=== PATIENT | male | born 1985 | race Caucasian/White ===

== ENCOUNTER 2017-10-10 17:47 | Emergency (ER) | payer OTHER ==
--- NOTE | 2017-10-10 18:38 | EDM.PDOC ---
ED HPI GENERAL MEDICAL PROBLEM - General Chief Complaint: General Stated Complaint: PT HAS ANXIETY Time Seen by Provider: 10/10/17 18:28 - History of Present Illness INITIAL COMMENTS - FREE TEXT/NARRATIVE: HISTORY AND PHYSICAL: History of present illness: The patient is a 32-year-old male with a history of anxiety and depression several years ago who no longer suffers from depression but intermittently will have anxiety and sees a healthcare provider back in [place] where he lives. The patient is currently in the area on a work assignment and says that he has never left his home and recently he had to fly to [place] to do a job as well as [place] and here to do work and he is feeling much more anxious and stressed by this travel. He does not drink a lot of caffeinated products and he tries to eat healthy and go to the gym. He has no systemic complaints of fever chills chest pain shortness of breath but does have nausea with his anxiety without vomiting. He does not feel depressed and has no suicidal ideation but says that with his anxiety he really would be using his Xanax but he left them at home in [place]. Patient says he has not used his Xanax over a month and he only takes it as needed mostly for sleep and his provider at home is very familiar with him in his prescription. He is here for help with sleep as he has not been able to get any rest for the last 3 nights due to his anxiety. Review of systems: As per history of present illness and below otherwise all systems reviewed and negative. Past medical history: As per history of present illness and as reviewed below otherwise noncontributory. Surgical history: As per history of present illness and as reviewed below otherwise noncontributory. Social history: No reported history of drug or alcohol abuse. Family history: As per history of present illness and as reviewed below otherwise noncontributory. Physical exam: Gen.: Well-developed well-nourished male who is nontoxic and vital signs of an reviewed by me. HEENT: Atraumatic, normocephalic, pupils reactive, negative for conjunctival pallor or scleral icterus, mucous membranes moist, throat clear, neck supple, nontender, trachea midline. Lungs: Clear to auscultation, breath sounds equal bilaterally, chest nontender. Heart: S1S2, regular rate and rhythm no overt murmurs Abdomen: Soft, nondistended, nontender. NABS Pelvis: Stable nontender. Genitourinary: Deferred. Rectal: Deferred. Extremities: Atraumatic, negative for cords or calf pain. Neurovascular unremarkable. Neuro: Awake, alert, oriented. Cranial nerves II through XII unremarkable. Cerebellum unremarkable. Motor and sensory unremarkable throughout. Exam nonfocal. Diagnostics: [] Therapeutics: [] Discussed with the patient that he could have someone at home since his medication via [employer] or he can contact his provider at home to send him a new prescription. I told him that I would give him some Xanax to tide him over and give him referral to our clinic as he will be here for the next one month. Impression: Anxiety with history of same Definitive disposition and diagnosis as appropriate pending reevaluation and review of above. - Related Data Allergies Allergy/AdvReac Type Severity Reaction Status Date / Time No Known Allergies Allergy Verified 10/10/17 18:25 Home Meds: Home Meds ALPRAZolam [Xanax XR] 1 tab PO DAILY 10/10/17 [History] ALPRAZolam [Xanax XR] 2 tab PO BEDTIME 10/10/17 [History] Past Medical History - Past Health History Medical/Surgical History: Denies Medical/Surgical History Psychiatric History: Reports: Anxiety Social & Family History - Family History Family Medical History: Noncontributory Other Dermatologic Family History: Schizophrenia - Tobacco Use Smoking Status *Q: Never Smoker Second Hand Smoke Exposure: No - Caffeine Use Caffeine Use: Reports: None - Recreational Drug Use Recreational Drug Use: No ED ROS GENERAL - Review of Systems Review Of Systems: ROS reveals no pertinent complaints other than HPI. ED EXAM, GENERAL - Physical Exam Exam: See Below (see dictation) Course - Vital Signs Last Recorded V/S: Last Vital Signs Temp 36.9 C 10/10/17 18:23 Pulse 79 10/10/17 18:23 Resp 20 10/10/17 18:23 BP 144/72 H 10/10/17 18:23 Pulse Ox 98 10/10/17 18:23 Departure - Departure Time of Disposition: 18:37 Disposition: Home, Self-Care 01 Condition: Good Clinical Impression: Anxiety - Discharge Information Referrals: PCP,None [Primary Care Provider] - Additional Instructions: The following information is given to patients seen in the emergency department who are being discharged to home. This information is to outline your options for follow-up care. We provide all patients seen in our emergency department with a follow-up referral. The need for follow-up, as well as the timing and circumstances, are variable depending upon the specifics of your emergency department visit. If you don't have a primary care physician on staff, we will provide you with a referral. We always advise you to contact your personal physician following an emergency department visit to inform them of the circumstance of the visit and for follow-up with them and/or the need for any referrals to a consulting specialist. The emergency department will also refer you to a specialist when appropriate. This referral assures that you have the opportunity for followup care with a specialist. All of these measure are taken in an effort to provide you with optimal care, which includes your followup. Under all circumstances we always encourage you to contact your private physician who remains a resource for coordinating your care. When calling for followup care, please make the office aware that this follow-up is from your recent emergency room visit. If for any reason you are refused follow-up, please contact the [facility] emergency department at and ask to speak to the emergency department charge nurse. [facility] Primary care- Internal Medicine and Family [address] [id number] Please contact somebody at your home to either send your medications, the Xanax , via mail or overnight or contact her provider at home to send you a new prescription as we discussed. Please use the Xanax that I prescribed as needed but only take it when you're at home and not while at work. Return to ER as needed and as discussed
== END 2017-10-10 18:55 | disposition home or self-care (01) ==
LOC: MW.ED 17:47
DX: F41.9 Anxiety disorder, unspecified (principal); F32.9 Major depressive disorder, single episode, unspecified; Z79.899 Other long term (current) drug therapy
CPT/HCPCS: 99283